=== PATIENT | female | born 1980 | race Caucasian/White ===

== ENCOUNTER 2016-08-07 05:22 | Inpatient (IN) | payer BC ==
[2016-08-07] VITALS (11 sets, daily range): BP systolic 110–130; BP diastolic 62–89; PULSE 62–79; RESP 16–18; TEMP 98.2–99.1
[2016-08-07] MEDS ORDERED: LACTATED RINGER'S 1000 ML INJ 1,000 ML IV SCH (05:46)
[2016-08-07] MEDS ORDERED: LACTATED RINGER'S 1000 ML INJ 1,000 ML IV PRN (05:46)
[2016-08-07] MEDS ORDERED: LIDOCAINE HCL 1% 50 ML VIAL INFIL PRN (06:00)
[2016-08-07] MEDS ORDERED: CITRIC ACID-SODIUM CITRATE LIQ 30 ML UDC PO SCH (06:00)
[2016-08-07] MEDS ORDERED: MINERAL OIL 10 ML VIAL TOPICAL PRN (06:00)
[2016-08-07] MEDS ORDERED: SODIUM CHLORID 0.9% 500 ML INJ 500 ML IV PRN (06:00)
[2016-08-07] MEDS ORDERED: LIDOCAINE HCL 1% 50 ML VIAL I-DERMAL PRN (06:00)
[2016-08-07] MEDS ORDERED: OXYTOCIN 30 UNITS-500ML PREMIX 500 ML IV ONE ×2 (06:00→07:30)
--- NOTE | 2016-08-07 06:01 | HHI.HP ---
HPI Chief Complaint Contraction pain Date Seen: Aug 07, 2016 Travel History International Travel<30 Days: No Contact w/Intl Traveler<30Days: No Known Affected Area: No History of Present Illness HPI 36-year-old white female at 38 weeks presents in precipitous labor completely dilated, heart tones are reactive Para: 0 : 2 Miscarriage: 1 History Obstetric History Obstetric History 1 early loss Social History Alcohol Use: No Tobacco Use: No Substance Abuse: No Allergies-Medications (Allergen,Severity, Reaction): Coded Allergies: No Known Allergies (Unverified , 08/07/16) Review of Systems General / Constitutional: No: Fever, Weight Gain, Chills, Other Eyes: No: Diploplia, Blurred Vision, Visual changes, Pain, Photophobia HENT: No: Headaches, Vertigo, Lightheadedness Cardiovascular: No: Irregular Rhythm, Chest Pain or Discomfort, Palpitations, Tachycardia, Syncope, Varicosities, Edema, Cyanosis Respiratory: No: Cough, Short of Breath, Other Gastrointestinal: No: Nausea, Vomiting, Diarrhea Genitourinary: No: Decreased Urinary Output, Oliguria Musculoskeletal: No: Limited ROM, Weakness, Cramping, Edema, Pain Skin: No Rash, No Itching, No Dryness, No Lumps, No Change in Pigmentation, No Change in Nails, No Alopecia, No Lesions Neurologic: No: Weakness, Dizziness, Syncope, Focal Abnormalities, Coordination Problem, Headache, Slurred Speech, Seizures Psychiatric: No: Depression, Suicidal Ideations, Homicidal Ideation Endocrine: No: Heat Intolerance, Cold Intolerance, Polydipsia, Polyuria, Other Physical Exam Narrative GENERAL: Well-nourished, well-developed patient. SKIN: Warm and dry. HEAD: Normocephalic and atraumatic. EYES: No scleral icterus. No injection or drainage. ENT: No nasal drainage noted. Mucous membranes pink. Airway patent. NECK: Supple, trachea midline. No JVD. CARDIOVASCULAR: Regular rate and rhythm without murmurs, gallops, or rubs. RESPIRATORY: Breath sounds equal bilaterally. No accessory muscle use. BREASTS: Bilateral exam showed no masses , no retractions, no nipple discharge. ABDOMEN/GI: Abdomen soft, non-tender, bowel sounds present, no rebound, no guarding Gravid to [-38] weeks size Fundal Height: [-38] GENITOURINARY: External Genitalia: intact and normal in appearance BUS glands: [-] Cervix: [-] Dilatation: [-10] Effacement: [100-] Station: [-1] Presentation: [-vtx] Membranes: ruptured] Uterine Contractions: [reg-] FHT's: Category: [1-] Baseline: [-133] Reactive: [-yes] Variability: [-mod] Decels: [-none] EXTREMITIES: No cyanosis or edema. BACK: Nontender without obvious deformity. No CVA tenderness. NEUROLOGICAL: Awake and alert. Motor and sensory grossly within normal limits. Five out of 5 muscle strength in all muscle groups. Normal speech. Data Data Orders Ob (2e) Additional Admit Info (08/07/16 05:41) Admit To Inpatient (08/07/16 ) Code Status (08/07/16 05:46) Vital Signs (Adult) .Per protocol (08/07/16 05:46) ^ Heart (08/07/16 05:46) ^ Amnioinfusion (08/07/16 05:46) Urinary Catheter Management .ONCE (08/07/16 05:46) Diet Npo (08/07/16 Breakfast) Lactated Ringer's 1000 Ml Inj (Lr 1000 M (08/07/16 05:46) Lactated Ringer's 1000 Ml Inj (Lr 1000 M (08/07/16 05:46) Sodium Chlorid 0.9% 500 Ml Inj (Ns 500 M (08/07/16 06:00) Sodium Chlor 0.9% 1000 Ml Inj (Ns 1000 M (08/07/16 06:06) Lidocaine 1% Inj (50 Ml) (Xylocaine 1% I (08/07/16 06:00) Citric Acid-Sodium Citrate Liq (Bicitra (08/07/16 06:00) Fentanyl Inj (Fentanyl Inj) (08/07/16 06:00) Fentanyl Inj (Fentanyl Inj) (08/07/16 06:00) Complete Blood Count With Diff (08/07/16 05:46) Hold Clot (08/07/16 05:46) Abo/Rh Blood Type (08/07/16 05:46) Urinalysis - C+S If Indicated (08/07/16 05:46) Resp Oxygen Non Rebreathe Mask (08/07/16 ) ^ Epidural / Intrathecal Infus (08/07/16 05:46) Oxytocin 30 Units-500ml Premix (Pitocin (08/07/16 06:00) Lidocaine 1% Inj (50 Ml) (Xylocaine 1% I (08/07/16 06:00) Light Mineral Oil (Muri-Lube Oil) (08/07/16 06:00) Inpatient Certification (08/07/16 ) Specimen To Be Collected PRN (08/07/16 05:46) Assessment/Plan Assessment and Plan This is a 36-year-old white female at 38 weeks is followed by Elva Mendoza for care presents now on precipitous labor completely dilated in triage with ruptured membranes. heart rate is within normal limits reactive strip seen contractions noted. Lantus admit for labor and delivery Nghia Castellanos II, MD Aug 07, 2016 06:01
[2016-08-07] MEDS ORDERED: SODIUM CHLOR 0.9% 1000 ML INJ 1,000 ML IV PRN (06:06)
--- NOTE | 2016-08-07 07:24 | PD.OB.DELI ---
Delivery Date: Aug 07, 2016 Anesthesia: None Episiotomy: None Vaginal Delivery: Normal Presentation: Occiput anterior Nuchal Cord: x2 Delayed cord clamping (45 sec): No : Female One Minute : 6 Five Minute : 7 Weight: 2840g Infant Care: Suctioned, Responded to stimulation, Blow-by O2 delivered Placenta: Spontaneous delivery, Intact (blood clot present), 3 vessel cord Laceration: Vaginal laceration, 1 deg Repair: Vicryl interrupted, Vicryl running Evelyn Glover MD R1 Aug 07, 2016 07:24
[2016-08-07] MEDS ORDERED: SODIUM CHLORIDE 0.9% FLUSH 10 ML FLUSH IV FLUSH PRN (07:30)
[2016-08-07] MEDS ORDERED: WITCH HAZEL 50%/GLYCERIN 12.5% 40 PAD JAR TOPICAL PRN (07:30)
[2016-08-07] MEDS ORDERED: ZOLPIDEM TARTRATE 5 MG TAB PO PRN (07:30)
[2016-08-07] MEDS ORDERED: BENZOCAINE 20% TOPICAL SPRAY 60 ML CAN TOPICAL PRN (07:30)
[2016-08-07] MEDS ORDERED: ONDANSETRON ODT 4 MG TAB PO PRN (07:30)
[2016-08-07] MEDS ORDERED: ALUMINUM/MAGNESIUM/SIMETH 30 ML CUP PO PRN (07:30)
[2016-08-07] MEDS ORDERED: ACETAMINOPHEN 325 MG TAB PO PRN (07:30)
--- NOTE | 2016-08-07 07:39 | PD.LABORPN ---
Subjective Subjective OB attending delivery note This patient is primiparous patient at 38 weeks delivered over first-degree perineal laceration a viable weight 2840 6/ 7, bulb suction after delivery baby handed to waiting nursery staff, placenta delivered spontaneously intact there was no sign of accessory lobe or missing piece of the placenta perineal laceration repaired in layers by the family medicine residents who did the delivery and did a good job with that Objective Objective Nghia Castellanos II, MD Aug 07, 2016 07:39
[2016-08-07] MEDS ORDERED: SODIUM CHLORIDE 0.9% FLUSH 10 ML FLUSH IV FLUSH SCH (09:00)
[2016-08-07 09:54] LABS: BASOPHIL # 0.1 TH/MM3 (0-0.2); BASOPHIL % 0.4 % (0.0-2.0); HEMATOCRIT 32.1 % (35.0-46.0); HEMO FLAGS DIFF FINAL; LYMPH % 5.2 % (9.0-44.0); LYMPHOCYTE # 1.2 TH/MM3 (1.0-4.8); MEAN CELL VOLUME 90.6 FL (80.0-100.0); MEAN CORPUSCULAR HEMOGLOBIN 30.4 PG (27.0-34.0); MEAN CORPUSCULAR HGB CONC 33.6 % (32.0-36.0); MONO % 4.9 % (0.0-8.0); NEUT % 89.5 % (16.0-70.0); PLATELET COUNT 263 TH/MM3 (150-450); RED BLOOD COUNT 3.55 MIL/MM3 (4.00-5.30); RED CELL DISTRIBUTION WIDTH 12.7 % (11.6-17.2); WHITE BLOOD COUNT 23.4 TH/MM3 (4.0-11.0)
[2016-08-07] MEDS: NICOTINE 14 MG/24 HR PATCH TD SCH (14:55)
[2016-08-07] MEDS: IBUPROFEN 600 MG TAB PO PRN ×2 (14:57→21:40)
[2016-08-07] MEDS ORDERED: DIPHTH/TETANUS/ACEL PERTUSSIS (BOOSTER) 0.5 ML VIAL/PFS IM ONE (16:00)
[2016-08-07] MEDS ORDERED: MEASLES, MUMPS, RUBELLA VACCINE 0.5 ML VIAL SQ ONE (16:00)
[2016-08-07] MEDS ORDERED: REMOVE OLD NICODERM (NICOTINE) PATCH TD SCH (21:00)
[2016-08-08] MEDS: DOCUSATE SODIUM 50 MG/SENNA 8.6 MG TAB PO PRN (04:42)
[2016-08-08] MEDS: IBUPROFEN 600 MG TAB PO PRN ×3 (04:43→18:38)
--- NOTE | 2016-08-08 07:26 | HHI.OB ---
Subjective Post Day: 1 Remarks day # 1. AFVSS overnight. Pain controlled. Decreased lochia. Denies dysuria. No breast tenderness. She is feeding the baby via breast. Appetite good. No nausea or vomiting. Positive flatus. Negative bowel movement. Ambulating well. Denies calf pain, shortness of breath, or cough. Otherwise, she is doing well this morning and has no other complaints. (Be Frye MD R2) Objective Vitals/I&O Vital Signs Date Time Temp Pulse Resp B/P Pulse Ox O2 Delivery O2 Flow Rate FiO2 08/07/16 19:30 122/71 08/07/16 19:30 98.2 70 18 08/07/16 09:26 99.1 63 16 110/71 08/07/16 08:16 69 114/66 08/07/16 08:15 98.5 16 08/07/16 08:01 79 120/89 08/07/16 07:46 62 128/69 08/07/16 07:31 71 127/76 08/07/16 07:30 16 08/07/16 07:27 65 116/65 Objective Remarks GENERAL: Well-nourished, well-developed patient. CARDIOVASCULAR: Regular rate and rhythm without murmurs, gallops, or rubs. RESPIRATORY: Breath sounds equal bilaterally. No accessory muscle use. ABDOMEN/GI: Abdomen soft, non-tender. Fundus: Firm, non-tender at umbilicus. GENITOURINARY: Light to moderate bleeding. EXTREMITIES: No cyanosis or edema, non-tender, without signs of DVT. Medications and IVs Current Medications Medications (Trade) Dose Ordered Sig/Julio C Route Start Time Stop Time Status Last Admin (NS Flush) 2 ml BID IV FLUSH 08/07/16 09:00 (NS Flush) 2 ml UNSCH PRN IV FLUSH 08/07/16 07:30 (Tylenol) 650 mg Q4H PRN PO 08/07/16 07:30 (Motrin) 600 mg Q6H PRN PO 08/07/16 07:30 08/08/16 04:43 (Americaine 20% Top Spr) 1 spray Q4H PRN TOPICAL 08/07/16 07:30 (Tucks Pads) 1 applic QID PRN TOPICAL 08/07/16 07:30 (Jailene-Colace) 2 tab Q12H PRN PO 08/07/16 07:30 08/08/16 04:42 (Ambien) 5 mg HS PRN PO 08/07/16 07:30 (Mag-Al Plus Susp Liq) 15 ml Q8H PRN PO 08/07/16 07:30 (Zofran Odt) 4 mg Q6H PRN PO 08/07/16 07:30 (Habitrol 14 Mg Patch.24 Hr) 1 patch DAILY TD 08/07/16 14:00 08/07/16 14:55 Miscellaneous Information 1 HS TD 08/07/16 21:00 (Be Frye MD R2) Assessment/Plan Problem List: (1) care following vaginal delivery Assessment and Plan 36 y/o female who is PPD# 1 s/p . -Continue routine care. -Percocet and Motrin PRN pain. -Encouraged OOB. Advised pelvic rest for 6 wks. -Will need a f/u appt. within 6 wks. -Re: ctrl, she plans to use the pill. -D/c in 1-2 more days. wdw OB attending Discharge Planning Discharge planning for tomorrow (Be Frye MD R2) Attestation Patient seen and examined. Agree with resident's plan. (Fadumo Vasquez MD) Be Frye MD R2 Aug 08, 2016 07:26 Fadumo Vasquez MD Aug 08, 2016 10:01
[2016-08-08 08:30] VITALS: BP 120/63; PULSE 68; RESP 16; TEMP 97.9
[2016-08-08 10:54] LABS: AUTOMATED NEUTROPHIL # 11.5 TH/MM3 (1.8-7.7); BASOPHIL % 0.2 % (0.0-2.0); EOSINOPHIL # 0.2 TH/MM3 (0-0.4); EOSINOPHIL % 1.1 % (0.0-4.0); HEMATOCRIT 32.1 % (35.0-46.0); HEMO FLAGS DIFF FINAL; LYMPH % 15.9 % (9.0-44.0); LYMPHOCYTE # 2.4 TH/MM3 (1.0-4.8); MEAN CELL VOLUME 91.9 FL (80.0-100.0); MEAN CORPUSCULAR HEMOGLOBIN 29.9 PG (27.0-34.0); MEAN CORPUSCULAR HGB CONC 32.5 % (32.0-36.0); MONO % 5.1 % (0.0-8.0); NEUT % 77.7 % (16.0-70.0); PLATELET COUNT 244 TH/MM3 (150-450); RED CELL DISTRIBUTION WIDTH 12.7 % (11.6-17.2); WHITE BLOOD COUNT 14.8 TH/MM3 (4.0-11.0)
[2016-08-08] MEDS: NICOTINE 14 MG/24 HR PATCH TD SCH (12:05)
[2016-08-08 22:24] VITALS: BP 107/66; PULSE 73; RESP 18; TEMP 98.5
[2016-08-09] MEDS: IBUPROFEN 600 MG TAB PO PRN ×2 (01:01→09:54)
--- NOTE | 2016-08-09 07:43 | HHI.OB ---
Subjective Post Day: 2 Remarks day # 2. AFVSS overnight. Pain controlled. Decreased lochia. Denies dysuria. No breast tenderness. She is feeding the baby via bottle. Appetite good. No nausea or vomiting. Positive flatus. Positive bowel movement. Ambulating well. Denies calf pain, shortness of breath, or cough. Otherwise, she is doing well this morning and has no other complaints. (Be Frye MD R2) Objective Vitals/I&O Vital Signs Date Time Temp Pulse Resp B/P Pulse Ox O2 Delivery O2 Flow Rate FiO2 08/08/16 22:24 98.5 73 18 107/66 08/08/16 19:38 3 08/08/16 08:30 68 08/08/16 08:30 97.9 16 120/63 Objective Remarks GENERAL: Well-nourished, well-developed patient. CARDIOVASCULAR: Regular rate and rhythm without murmurs, gallops, or rubs. RESPIRATORY: Breath sounds equal bilaterally. No accessory muscle use. ABDOMEN/GI: Abdomen soft, non-tender. Fundus: Firm, non-tender at umbilicus. GENITOURINARY: Light to moderate bleeding. EXTREMITIES: No cyanosis or edema, non-tender, without signs of DVT. Medications and IVs Current Medications Medications (Trade) Dose Ordered Sig/Julio C Route Start Time Stop Time Status Last Admin (NS Flush) 2 ml BID IV FLUSH 08/07/16 09:00 (NS Flush) 2 ml UNSCH PRN IV FLUSH 08/07/16 07:30 (Tylenol) 650 mg Q4H PRN PO 08/07/16 07:30 (Motrin) 600 mg Q6H PRN PO 08/07/16 07:30 08/09/16 01:01 (Americaine 20% Top Spr) 1 spray Q4H PRN TOPICAL 08/07/16 07:30 (Tucks Pads) 1 applic QID PRN TOPICAL 08/07/16 07:30 (Jailene-Colace) 2 tab Q12H PRN PO 08/07/16 07:30 08/08/16 04:42 (Ambien) 5 mg HS PRN PO 08/07/16 07:30 (Mag-Al Plus Susp Liq) 15 ml Q8H PRN PO 08/07/16 07:30 (Zofran Odt) 4 mg Q6H PRN PO 08/07/16 07:30 (Habitrol 14 Mg Patch.24 Hr) 1 patch DAILY TD 08/07/16 14:00 08/08/16 12:05 Miscellaneous Information 1 HS TD 08/07/16 21:00 (Be Frye MD R2) Assessment/Plan Problem List: (1) care following vaginal delivery Assessment and Plan 36 y/o female who is PPD# 2 s/p . -Continue routine care. -Percocet and Motrin PRN pain. -Encouraged OOB. Advised pelvic rest for 6 wks. -Will need a f/u appt. within 6 wks. -Re: ctrl, she plans to use the pill or IUD. -D/c home today wdw OB attending Discharge Planning Discharge planning for today (Be Frye MD R2) Collaborating MD Comments PPD # 2 doing well. Agree with discharge plans (Duyen Perez MD) Be Frye MD R2 Aug 09, 2016 07:43 Duyen Perez MD Aug 09, 2016 08:22
[2016-08-09] MEDS ORDERED: SENN1TAB PO (07:44)
[2016-08-09] MEDS ORDERED: IBUP-232 PO (07:44)
--- NOTE | 2016-08-09 07:45 | HHI.DCPOC ---
Discharge Care Plan Diagnosis: (1) care following vaginal delivery Report Symptoms to Your Doctor -Temperate above 100.5 degrees -Redness, of incision or excessive or foul smelling drainage -Unusual pain or calf pain -Increased vaginal bleeding -Painful or difficulty urinating -Feelings of extreme sadness or anxiety after 2 weeks Goals to Promote Your Health * To prevent worsening of your condition and complications * To maintain your health at the optimal level Follow up with OB in 6 weeks Pelvic Rest for 6 weeks Directions to Meet Your Goals Take your medications as prescribed Follow your dietary instruction Follow activity as directed Ensure plenty of rest for recovery Drink fluids for hydration Keep your appointments as scheduled Take your immunizations and boosters as scheduled If your symptoms worsen call your PCP, if no PCP go to Urgent Care Center or Emergency Room Smoking is Dangerous to Your Health. Avoid second hand smoke Call the 24-hour crisis hotline for domestic abuse at Be Frye MD R2 Aug 09, 2016 07:45
[2016-08-09] MEDS: DOCUSATE SODIUM 50 MG/SENNA 8.6 MG TAB PO PRN (09:54)
[2016-08-09] MEDS: NICOTINE 14 MG/24 HR PATCH TD SCH (09:54)
[2016-08-09 10:00] VITALS: BP 101/53; PULSE 72; RESP 16; TEMP 98.3
== END 2016-08-09 10:14 | disposition home or self-care (01) | DRG 775 ==
LOC: HOBED 05:22 → H2EA 05:40 → H1EA 08:55
PROVIDERS: ADMIT Obstetrics & Gynecology Maternal & Fetal Medicine; ATTEND Obstetrics & Gynecology Maternal & Fetal Medicine
PROC: 10E0XZZ Delivery of Products of Conception, External Approach (ICD-10-PCS; principal; 2016-08-07)
PROC: 0HQ9XZZ Repair Perineum Skin, External Approach (ICD-10-PCS; 2016-08-07)
DX: O62.3 Precipitate labor (principal); O69.81X0 Labor and delivery complicated by cord around neck, without compression, not applicable or unspecified; Z37.0 Single live birth; O70.0 First degree perineal laceration during delivery; Z3A.38 38 weeks gestation of pregnancy
CPT/HCPCS: 59025; 85025; 86900; 86901; 90715; 99285; J3010